=== PATIENT | female | born 2000 | race African-American/Black ===

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

== ENCOUNTER 2020-01-10 11:23 | Inpatient (IN) ==
[2020-01-10] MEDS ORDERED: ceFAZolin 2,000 MG in PREMIX 1 EACH IV ONE (11:46)
[2020-01-10] MEDS ORDERED: CITRIC ACID/SODIUM CITRATE 30 ML UDCUP PO ONE (11:46)
[2020-01-10] MEDS ORDERED: FAMOTIDINE 20 MG/2 ML VIAL IV ONE (11:46)
[2020-01-10] MEDS ORDERED: LACTATED RINGERS 1,000 ML IV SCH ×2 (12:00)
[2020-01-10] MEDS ORDERED: BUPIVACAINE SPINAL 0.75% 2 ML AMP SPINAL ONE (12:12)
[2020-01-10] MEDS ORDERED: ONDANSETRON 4 MG/2 ML VIAL ONE (12:12)
[2020-01-10] MEDS ORDERED: KETOROLAC 30 MG/1 ML VIAL ONE (12:12)
[2020-01-10] MEDS ORDERED: DEXAMETHASONE 4 MG/1 ML VIAL ONE (12:12)
[2020-01-10] MEDS ORDERED: MORPHINE 10 MG/10 ML VIAL ONE (12:12)
[2020-01-10] MEDS ORDERED: TRANEXAMIC ACID 1,000 MG/10 ML VIAL ONE (12:13)
[2020-01-10] MEDS ORDERED: miSOPROStoL 200 MCG TABLET ONE (12:13)
[2020-01-10] MEDS ORDERED: CARBOPROST TROMETHAMINE 250 MCG/ML AMP IM ONE (12:14)
[2020-01-10] MEDS ORDERED: METHYLERGONOVINE 0.2 MG/1 ML AMP ONE (12:14)
[2020-01-10] MEDS ORDERED: OXYTOCIN/LR 20 UNIT/1,000 ML BAG IV ONE ×2 (12:14→13:29)
[2020-01-10 12:24] LABS: Basophils # 0.1 10*3/uL (0.0-0.2); Basophils % 0.6 % (0.0-0.8); Eosinophils % 0.1 % (0.00-10.9); Hematocrit 36.4 VOL% (35.7-47.0); Hemoglobin 11.5 GM/DL (12.0-16.0); Immature Granulocytes % 0.5 %; Immature Granulocytes Absolute 0.04 #; Lymphocytes # 1.9 10*3/uL (1.4-4.0); Mean Corpuscular HGB Conc 31.6 GM/DL (32-36); Mean Corpuscular Volume 77.3 FL (87-102); Mean Platelet Volume 11.3 FL (9.6-12.0); Monocytes % 6.5 % (1.7-12.7); Neutrophils % 69.3 % (38.7-73.9); Platelet Count 264 T/CUMM (130-400); Red Blood Count 4.71 MC/CUMM (3.8-5.5); Red Cell Distribution Width 15.8 % (9.3-17.3); White Blood Count 8.3 T/CUMM (4-12)
[2020-01-10 12:36] LABS: INR 0.9; PT Patient Result 9.7 SECS (9.8-11.9)
[2020-01-10 12:47] LABS: Anisocytosis 1+; Platelet Estimate Normal
[2020-01-10 12:48] LABS: Albumin 2.8 G/DL (3.4-5.0); Bilirubin,Total 0.4 MG/DL (0.2-1.0); Calcium 8.9 MG/DL (8.5-10.1); Osmolality,Calculated 274.4 MOS/KG (273-304); Total Protein 7.4 G/DL (6.4-8.3)
[2020-01-10] MEDS ORDERED: fentaNYL 100 MCG/2 ML VIAL ONE (13:01)
[2020-01-10 13:15] LABS: Bacteria,Urine Occasional /HPF (Few); Bilirubin,Urine Negative (Negative); Blood, Urine Negative (Negative); Glucose,Urine (UA) Negative (Negative); Hyaline Casts,Urine 3 /LPF (0-3); Ketones,Urine 80 mg/dL (Negative); Mucus,Urine Few /LPF (Occasional); Nitrite,Urine Negative (Negative); Protein,Urine 100 MG/DL; RBC,Urine 4 /HPF (0-4); Squamous Epithelial Cell,Urine Occasional /HPF (0-10); Urine Appearance CLEAR (Clear); Urine Color Yellow (Yellow); Urine Specific Gravity 1.016 (1.001-1.035); Urine Urobilinogen < 2.0 EU/DL (0.2-1.0); WBC,Urine 4 /HPF (0-6)
[2020-01-10 13:16] LABS: Cord Venous Blood HCO3 24.1 MMOL/L; Cord Venous Blood PCO2 53.1 MMHG; Cord Venous Blood PO2 26.8 MMHG
[2020-01-10] MEDS ORDERED: ONDANSETRON 4 MG/2 ML VIAL IV PRN (13:29)
[2020-01-10] MEDS ORDERED: oxyCODONE/ACETAMINOPHEN 5-325 MG TABLET PO PRN (13:29)
[2020-01-10] MEDS ORDERED: BISACODYL 10 MG SUPP RECTAL PRN (13:29)
[2020-01-10] MEDS ORDERED: IBUPROFEN 800 MG TABLET PO PRN (13:29)
[2020-01-10] MEDS ORDERED: MEASLES/MUMPS/RUBELLA VACCINE 0.5 ML VIAL SUBCUT ONE (13:29)
[2020-01-10] MEDS ORDERED: BENZOCAINE 20%/MENTHOL 0.5% SPRAY 56 GM CAN TOP PRN (13:29)
[2020-01-10] MEDS ORDERED: LANOLIN 50% CREAM 0.3 OZ TUBE TOP PRN (13:29)
[2020-01-10] MEDS ORDERED: WITCH HAZEL PADS 100/JAR TOP PRN (13:29)
[2020-01-10] MEDS ORDERED: DIPH/TET/ACEL PERT BOOSTER VACCINE 0.5 ML VIAL IM ONE (13:29)
[2020-01-10] MEDS ORDERED: ACETAMINOPHEN 325 MG TABLET PO PRN (13:29)
[2020-01-10] MEDS ORDERED: HYDROCORTISONE 2.5% RECTAL CREAM 30 GM TUBE TOP PRN (13:29)
[2020-01-10] MEDS ORDERED: RHO(D) IMMUNE GLOBULIN 300 MCG SYRINGE IM ONE (13:29)
[2020-01-10] MEDS ORDERED: diphenhydrAMINE 50 MG/1 ML VIAL IV ONE (14:17)
[2020-01-10] MEDS ORDERED: diphenhydrAMINE 50 MG/1 ML VIAL ONE (14:18)
[2020-01-10] MEDS ORDERED: MAGNESIUM SULF RIDER 4 GM in PREMIX 1 EACH IV ONE (15:58)
[2020-01-10] MEDS ORDERED: MAGNESIUM SULF DRIP 40 GM/1,000 ML ML IV SCH (16:00)
[2020-01-10] MEDS ORDERED: MAGNESIUM SULF RIDER 100 ML IV ONE (16:03)
[2020-01-10] MEDS ORDERED: LABETALOL 100 MG TABLET ONE ×2 (16:04→21:58)
[2020-01-10] MEDS ORDERED: LABETALOL 200 MG TABLET ONE (16:11)
[2020-01-10] MEDS: LABETALOL 200 MG TABLET PO SCH ×2 (16:28→22:05)
[2020-01-10] MEDS ORDERED: MAGNESIUM HYDROXIDE SUSP 30 ML UDCUP PO PRN (16:30)
[2020-01-10] MEDS ORDERED: GLUCAGON 1 MG VIAL IM PRN (17:40)
[2020-01-10] MEDS ORDERED: DEXTROSE 50% 25 GM/50 ML VIAL IV PRN (17:40)
[2020-01-10] MEDS ORDERED: SODIUM CHLORIDE 0.9% 100 ML IV ONE (19:49)
[2020-01-10] MEDS: ceFAZolin 1,000 MG in SYRINGE 1 EACH IV SCH (19:55)
[2020-01-10] MEDS ORDERED: LABETALOL 200 MG TABLET PO SCH (22:00)
[2020-01-10] MEDS: DOCUSATE SODIUM 100 MG CAPSULE PO SCH (22:07)
[2020-01-10] MEDS: INSULIN REGULAR 100 UNIT/ML SUBCUT SCH (23:02)
[2020-01-11 00:37] LABS: Basophils % 0.2 % (0.0-0.8); Eosinophils # 0.3 10*3/uL (0.0-0.87); Eosinophils % 2.6 % (0.00-10.9); Hematocrit 31.3 VOL% (35.7-47.0); Hemoglobin 10.2 GM/DL (12.0-16.0); Immature Granulocytes % 0.3 %; Immature Granulocytes Absolute 0.04 #; Lymphocytes # 1.6 10*3/uL (1.4-4.0); Lymphocytes % 12.7 % (21.3-54.2); Mean Corpuscular HGB Conc 32.6 GM/DL (32-36); Mean Corpuscular Volume 76.5 FL (87-102); Mean Platelet Volume 10.9 FL (9.6-12.0); Monocytes % 3.4 % (1.7-12.7); Neutrophils % 80.8 % (38.7-73.9); Platelet Count 262 T/CUMM (130-400); Red Blood Count 4.09 MC/CUMM (3.8-5.5); Red Cell Distribution Width 15.4 % (9.3-17.3); White Blood Count 12.4 T/CUMM (4-12)
[2020-01-11] MEDS ORDERED: GLUCAGON 1 MG VIAL IM PRN (01:52)
[2020-01-11] MEDS ORDERED: DEXTROSE 50% 25 GM/50 ML VIAL IV PRN (01:52)
[2020-01-11] MEDS ORDERED: SODIUM CHLORIDE 0.9% 100 ML IV ONE (04:03)
[2020-01-11] MEDS: ceFAZolin 1,000 MG in SYRINGE 1 EACH IV SCH (04:14)
[2020-01-11] MEDS ORDERED: LABETALOL 100 MG TABLET ONE (05:59)
[2020-01-11] MEDS: LABETALOL 200 MG TABLET PO SCH (06:00)
[2020-01-11] MEDS: INSULIN REGULAR 100 UNIT/ML SUBCUT SCH ×3 (07:59→16:51)
[2020-01-11] MEDS: DOCUSATE SODIUM 100 MG CAPSULE PO SCH ×2 (08:50→21:02)
[2020-01-11] MEDS ORDERED: INFLUENZA VIRUS VACCINE 0.5 ML SYRINGE IM ONE (11:56)
[2020-01-11] MEDS: LABETALOL 100 MG TABLET PO SCH ×2 (14:18→22:31)
[2020-01-11] MEDS: oxyCODONE/ACETAMINOPHEN 5-325 MG TABLET PO PRN ×2 (16:26→22:31)
[2020-01-12] MEDS: INSULIN REGULAR 100 UNIT/ML SUBCUT SCH ×2 (03:37→08:49)
[2020-01-12] MEDS: oxyCODONE/ACETAMINOPHEN 5-325 MG TABLET PO PRN (04:16)
[2020-01-12] MEDS: LABETALOL 100 MG TABLET PO SCH (06:06)
[2020-01-12 08:23] VITALS: BP 141/79
[2020-01-12] MEDS: DOCUSATE SODIUM 100 MG CAPSULE PO SCH (08:54)
== END 2020-01-12 11:20 | disposition home or self-care (01) | DRG 788 ==
LOC: N.LD 11:23 → N.OB 01-11 10:35
PROVIDERS: ADMIT Specialist; ATTEND Specialist
PROC: LDCSECT (ICD-10-PCS; 2020-01-10 12:30)